=== PATIENT | female | born 1960 | race Caucasian/White ===

== ENCOUNTER 2016-06-23 05:44 | Inpatient (IN) | payer BC ==
--- NOTE | ~2016-06-23 | OR ---
Unit #: [id number] #: [id number] Patient: BASIL BUSTAMANTE [id number] [address] [place], [place] [address] [id number] MR#: [id number] NAME: BASIL BUSTAMANTE ROOM: [facility] Date of Procedure: 06/23/2016 Admission Date: 06/23/2016 Surgeon: Mandy Medel M.D. : 1960 Attending Physician: Mandy Medel M.D. Primary Care Physician: Rena Linda M.D. OPERATIVE REPORT PREOPERATIVE DIAGNOSES 1. Right subtalar joint pseudarthrosis. 2. Right ankle valgus. 3. Right foot retained hardware. POSTOPERATIVE DIAGNOSES 1. Right subtalar joint pseudarthrosis. 2. Right ankle valgus. 3. Right foot retained hardware. PROCEDURES PERFORMED 1. Right medial closing wedge distal tibial osteotomy (32197). 2. Right subtalar revision fusion (03292). 3. Right foot cotton procedure (medial cuneiform opening wedge osteotomy) (97304). 4. Right foot hardware removal (28525). TINT LAYER Shine Edgar ANESTHESIA General and popliteal saphenous block. INDICATIONS FOR SURGERY The patient is a 56-year-old female, who has undergone previous right ankle ORIF 4 years ago, followed by subtalar fusion and first MTP joint fusion, subtalar fusion, and medial cuneiform osteotomy. The patient had persistent hindfoot valgus and has a nonunion of the subtalar joint. The patient is now to undergo revision subtalar joint fusion. She has 11 degrees of hindfoot valgus secondary to an apparent malunion of her distal tibia with shortening of her fibula. She will therefore undergo medial closing wedge osteotomy of the distal tibia to realign her hindfoot and ankle joint. She will also require hardware removal. DESCRIPTION OF PROCEDURE The patient underwent popliteal saphenous block. She was taken to the operating room and placed in supine position. General anesthetic was induced. The right foot was identified as the correct operative extremity during time-out procedure. The IV antibiotic protocol was followed. The right leg was prepped and draped in usual sterile fashion. The leg was exsanguinated and thigh tourniquet inflated to 300 mmHg. A 12 cm medial longitudinal incision was made over the distal tibia utilizing the old Unit #: [id number] #: [id number] Patient: DIANNABASIL scar. Subcutaneous tissue was carefully divided. The distal tibia was exposed subperiosteally. Baby Hohmann retractors were placed. Under C-arm fluoroscopic control, two K-wires were drilled from medial to lateral. One was parallel to the joint line and one was perpendicular to the long axis of the tibia. This then marked in 8 mm closing wedge osteotomy of the distal tibia, which was performed 15 mm proximal to the ankle joint. The K-wires were cut and used as guides for the sagittal saw in making the distal tibial cut. The two distal tibial cuts were made and the wedge of bone was removed and preserved to use later in the case. The osteotomy was closed and provisionally fixated with two crossed K-wires. The [place] Laporte plate distal tibial plate set was utilized. A short plate was selected and bent to confirm to the architecture of the medial tibia. This was then fixated distally with three 4.0 mm diameter cannulated screws and fixated proximally with three 3.5 mm diameter cortical screws. Excellent fixation was achieved and the tibial alignment was restored normally. Utilizing the old scar, a 6 cm oblique incision was made over the sinus tarsi to the old incision. Subcu tissue was divided. The subtalar joint was opened through the sinus tarsi. Scar was removed. There was a jewel pseudoarthrosis of the subtalar joint. The joint was distracted with a lamina photographic technician. The power osteotome, curved curettes, and rongeurs were utilized to remove the articular cartilage from both sides of the subtalar joint. There was still large amounts of surface, which were covered with articular cartilage. This was removed. The underlying subchondral bone was feathered with the power osteotome. It should be noted that prior to distal tibial osteotomy, the two previously placed medial malleolar screws were removed with a cannulated screwdriver. Prior to opening the subtalar joint, the previously placed large diameter subtalar joint fusion screw passing from the inferior heel into the talar neck was also removed with a large diameter screwdriver through a small stab incision in the heel. The distal tibial bone graft was then packed into the subtalar fusion site along with 2 collagen sponges soaked in INFUSE bone morphogenic protein. The joint was then held appropriately and fixated with two DePuy 8.0 mm diameter cannulated screws placed from the posterior inferior heel into the talar neck and body. Excellent fixation was achieved. There was still 10 degrees of residual forefoot varus, therefore cotton procedure was performed. The old dorsal incision over the medial cuneiform was used for the incision. A 4 cm incision was then made. The previously placed metal and plastic implant was removed. The osteotomy was completed with a microsagittal saw and opened 8 mm. A Superior cotton wedge allograft bone segment was then reconstituted in saline for 10 minutes and impacted into the cotton medial cuneiform dorsal opening wedge osteotomy site. Excellent fixation of the graft was obtained by fixating it with a 4.0 mm diameter DePuy cannulated screw placed from distal dorsal to proximal plantar. The forefoot alignment was then rectus. Tourniquet was released with a total tourniquet time of 2 hours 15 minutes. Deep tissues were closed with 2-0 Vicryl, subcutaneous tissue was closed with 3-0 Vicryl, skin was closed with 3-0 nylon horizontal mattress sutures. Xeroform gauze, dressing, sponges, Webril, and a posterior fiberglass splint were applied. The patient was then transported to the recovery room in stable condition. ESTIMATED BLOOD LOSS Unit #: [id number] #: [id number] Patient: BASIL BUSTAMANTE Minimal. COMPLICATIONS None. SPECIMENS None. TOURNIQUET TIME 2 hours 15 minutes. Dictated byShine Cameron/bertha TD: 06/23/2016 12:07 JOB #: [id number] OPERATIVE REPORT X Darren Medel MD X PROCEDURE OPERATIVE NOTE
--- NOTE | ~2016-06-23 | HP ---
Unit #: [id number] #: [id number] Patient: BASIL BUSTAMANTE [id number] [address] [place], [place] [address] [id number] O MR#: [id number] NAME: BASIL BUSTAMANTE ROOM: Age: Sex: F Admission Date: 06/23/2016 : 1960 Attending Physician: Mandy Medel M.D. Primary Care Physician: Rena Linda M.D. HISTORY AND PHYSICAL CHIEF COMPLAINT Right ankle pain and deformity. HISTORY OF PRESENT ILLNESS The patient is a 55-year-old female who underwent previous ankle open reduction and internal fixation in 2012 in [facility]. She states that she then sustained a fracture of her tibia and fibula. She was treated by a medical office secretary, Dr. Carlin, who removed her hardware because of persistent pain. Dr. Carlin attempted a subtalar fusion. Unfortunately she went on to develop a pseudoarthrosis. She has been treated with pain management using hydrocodone 10 mg p.o. q.8 h. as well a Lyrica. CT scan documents a pseudoarthrosis of the subtalar joint with 11 degrees of articular surface valgus orientation of the distal tibia. The patient is therefore admitted for right subtalar revision fusion, hardware removal and medial closing wedge osteotomy of the distal tibia. We will perform a 9 mm medial closing wedge osteotomy 15 mm above the ankle joint. PAST MEDICAL HISTORY Past medical history is remarkable for chronic pain, anxiety, cervical dysplasia, gout, allergic rhinitis, anemia, depression, herpes simplex, hyperlipidemia, hypothyroidism. PAST SURGICAL HISTORY Appendectomy, ankle ORIF, subtalar fusion, ankle hardware removal, knee replacement, shoulder rotator cuff repair, tonsillectomy. HOME MEDICATIONS [place] thyroid, calcium, vitamin D, Lyrica, meloxicam, Vicodin 10 mg p.o. t.i.d., Zanaflex. SOCIAL HISTORY The patient drinks alcohol socially. She is a 79-xmce-hrcl smoker. REVIEW OF SYSTEMS Unremarkable. FAMILY HISTORY Arthritis, osteoporosis, coronary artery disease, hypercholesterolemia, prostate cancer, diabetes, paranoid schizophrenia. PHYSICAL EXAMINATION GENERAL: In general it is a well-developed, well-nourished female in no acute distress. Unit #: [id number] #: [id number] Patient: BASIL BUSTAMANTE HEENT: Pharynx is clear. NECK: Neck is supple, without masses. HEART: Exam reveals a regular sinus rhythm without murmurs or gallops. LUNGS: The lungs are clear. ABDOMEN: The abdomen is soft and nontender, without masses or organomegaly. EXTREMITIES: Evaluation of the right foot shows a relatively normal arch with significant abduction of the forefoot. The heel is in 14 degrees of valgus. The left heel is in 8 degrees of valgus. Right ankle dorsiflexion 10 degrees. Plantar flexion 40 degrees. Subtalar inversion is present to neutral and eversion is 20 degrees. First MTP joint motion is normal. The patient has tenderness in the anterior ankle joint. Pulses are normal. Sensation is normal. Motor exam is normal. DIAGNOSTIC STUDIES IMAGING: Standing x-rays of the right foot show a previously performed subtalar fusion with one screw in place. There has also been a first MTP joint fusion lateral. Talo-first metatarsal angle is -19 degrees. Calcaneal pitch 18 degrees. Medial cuneiform height is -2 mm. Talonavicular joint is 40% uncovered. Standing right ankle x-rays show a complete maintenance of the tibiotalar joint although the articular surface of the tibia is in 11 degree of valgus with respect to the long axis of the tibia. The lateral malleolus appears relatively short compared to the medial malleolus. ADMITTING DIAGNOSES 1. Symptomatic right subtalar joint pseudoarthrosis. 2. Retained right foot hardware. 3. 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 PLAN The patient has failed conservative care. She is therefore admitted for right foot screw removal, revision subtalar fusion using Infuse bone morphogenic protein and medial closing wedge osteotomy of the distal tibia. This procedure was described in detail along with risks of bleeding, infection, nerve damage, need for further surgery in the future, prolonged recovery time, nonunion, malunion, deep venous thrombosis, pulmonary embolism, anesthetic complications. She understands the above risks and agrees to proceed with the treatment plan. She reviewed the operative permit and signed it in our office. Dictated by Shine Kline/scott TD: 06/22/2016 18:50 JOB #: [id number] Unit #: [id number] #: [id number] Patient: BASIL BUSTAMANTE HISTORY AND PHYSICAL X Darren Medel MD X HISTORY AND PHYSICAL
[~2016-06-23 05:44] MED LIST: FETZIMA120 MG PO; LIPITOR40 MG PO; TEMAZEPAM PO
[2016-06-23] MEDS ORDERED: ARMOUR THYROID60 M1 PO (06:15)
[2016-06-23] MEDS ORDERED: AMBIEN10 MG PO (06:16)
[2016-06-23] MEDS ORDERED: GRALISE300 MG PO (06:17)
[2016-06-23] MEDS ORDERED: AMITRYPTYLINE PO (06:17)
[2016-06-23] MEDS ORDERED: ZANAFLEX4 M1 PO (06:18)
[2016-06-23] MEDS ORDERED: PERCOCET 7.5-31 EACH PO (06:19)
[2016-06-23] MEDS ORDERED: AMITIZA8 MCG PO (06:19)
[2016-06-23] MEDS ORDERED: PRAVACHOL20 MG PO (06:20)
[2016-06-23 07:22] LABS: BLOOD UREA NITROGEN 22 mg/dL (9-23); BUN/CREATININE RATIO 31.42; CALCIUM SERUM 8.8 mg/dL (8.4-10.2); CARBON DIOXIDE 25 mmol/L (22-31); CHLORIDE 107 mmol/L (100-111); CREATININE SERUM 0.7 mg/dL (0.6-1.4); GLOM FILT RATE Estimated ABOVE60 mL/min (>60); GLUCOSE FASTING 110 mg/dL (70-110); POTASSIUM 4.3 mmol/L (3.5-5.1); SODIUM 135 mmol/L (135-145)
[2016-06-23] MEDS ORDERED: CELEBREX PO (14:33)
[2016-06-23] MEDS ORDERED: ARMOUR THYROID120 MG PO (14:33)
[2016-06-24 04:19] LABS: HEMATOCRIT 31.5 % (35.0-45.0); HEMOGLOBIN 10.5 gm/dL (12.0-16.0)
[2016-06-24] MEDS ORDERED: XARELTO10 MG PO (10:51)
[2016-06-24] MEDS ORDERED: PERCOCET 10/3251 TAB PO (10:52)
== END 2016-06-24 12:45 | disposition home or self-care (01) | DRG 492 ==
LOC: CSUR 05:44 → CPACUOF 11:02 → C4B 12:40
PROVIDERS: Orthopaedic Surgery
PROC: 0SPF04Z Removal of Internal Fixation Device from Right Ankle Joint, Open Approach (ICD-10-PCS; 2016-06-23)
PROC: 0SGF07Z Fusion of Right Ankle Joint with Autologous Tissue Substitute, Open Approach (ICD-10-PCS; principal; 2016-06-23 07:30)
PROC: 0QBG0ZZ Excision of Right Tibia, Open Approach (ICD-10-PCS; 2016-06-23 07:30)
PROC: 0QBL0ZZ Excision of Right Tarsal, Open Approach (ICD-10-PCS; 2016-06-23 07:30)
DX: M21.071 Valgus deformity, not elsewhere classified, right ankle (principal); S82.201B Unspecified fracture of shaft of right tibia, initial encounter for open fracture type I or II; M96.0 Pseudarthrosis after fusion or arthrodesis; E03.9 Hypothyroidism, unspecified; E78.5 Hyperlipidemia, unspecified; Z82.61 Family history of arthritis; Z82.62 Family history of osteoporosis; Z82.49 Family history of ischemic heart disease and other diseases of the circulatory system; Z83.3 Family history of diabetes mellitus; Z81.8 Family history of other mental and behavioral disorders; Z83.42 Family history of familial hypercholesterolemia; Z96.651 Presence of right artificial knee joint; Z96.642 Presence of left artificial hip joint; Z86.711 Personal history of pulmonary embolism
CPT/HCPCS: 80048; 85014; 85018; 94010; 94760; 97116; 97162; 97530; C1713; J0330; J0690; J2250; J2270; J2405; J2710; J2795; J3010; J3370

== ENCOUNTER → 2016-08-27 | Outpatient (CLI) | payer BC ==
[~2016-08-27] MED LIST changes: +AMBIEN10 MG PO; +AMITIZA8 MCG PO; +AMITRYPTYLINE PO; +ARMOUR THYROID120 MG PO; +ARMOUR THYROID60 M1 PO; +CELEBREX PO; +GRALISE300 MG PO; +PERCOCET 10/3251 TAB PO; +PERCOCET 7.5-31 EACH PO; +PRAVACHOL20 MG PO; +XARELTO10 MG PO; +ZANAFLEX4 M1 PO
--- NOTE | ~2016-08-27 | US85 ---
[facility] A Service of [facility] RADIOLOGY TEXT RESULTS PATIENT: BASIL BUSTAMANTE LOCATION: CNIV : 56 UNIT #: [id number] AGE: [address]: Darren Medel MD SEX: F ORDER DR: [id number] [facility] [address] [place], [place] [address] [id number] O MR#: [id number] Acc #: [id number] NAME: BASIL BUSTAMANTE : 1960 SEX: F STUDY DATE/TIME: 08/27/2016 16:10 UNIT: CNIV ROOM: STUDY DESCRIPTION: [facility]ilat or [facility] Attending Physician: Mandy Medel M.D. Referring Physician: Mandy Medel M.D. Ordering Physician: Mandy Medel M.D. Primary Care Physician: Rena Linda M.D. MEDICAL IMAGING REPORT This report is preliminary unless electronic signature is present EXAM Right lower extremity venous ultrasound 08/27/2016 HISTORY Right leg surgery May, cast taken off 1 week ago. Severe right leg pain since. History of DVT with knee replacement 2003. Posterior calf pain x 1 week. TECHNIQUE Venous ultrasound examination of the right lower extremity was performed using grayscale, spectral Doppler and color flow Doppler imaging. FINDINGS The examination is negative. There is no evidence of right lower extremity deep venous thrombus from the groin to the lower calf. Visualized greater saphenous vein is also patent. IMPRESSION Negative examination. No evidence of right lower extremity deep venous thrombosis. Dictated by... Camden Pedroza M.D. THIS IS AN ELECTRONICALLY VERIFIED REPORT Camden Pedroza M.D. at 08/28/2016 2:14 PM ANN/jasvir [facility] A Service of [facility] RADIOLOGY TEXT RESULTS PATIENT: BASIL BUSTAMANTE LOCATION: CNIV : 56 UNIT #: [id number] AGE: [address]: Darren Medel MD SEX: F ORDER DR: TD: 08/27/2016 18:32 JOB #: [id number] MEDICAL IMAGING REPORT Page 1 of 1 COPY
== END | disposition home or self-care (01) ==
LOC: CNIV 15:38
DX: G89.18 Other acute postprocedural pain (principal); M79.661 Pain in right lower leg; M79.89 Other specified soft tissue disorders
CPT/HCPCS: 93971